=== PATIENT | male | born 1945 | race Caucasian/White ===

== ENCOUNTER 2017-02-04 08:20 | Inpatient (IN) ==
[2017-02-04] MEDS ORDERED: ONDANSETRON 4 MG/2 ML VIAL IV STA (08:41)
[2017-02-04] MEDS ORDERED: ALUM/MAG/SIMETH/LIDO VISC 1:1 30 ML BOTTLE PO STA (08:41)
[2017-02-04] MEDS ORDERED: SODIUM CHLORIDE 0.9% 1,000 ML IV STA (08:41)
[2017-02-04 08:48] LABS: Basophils % 0.1 % (0.0-0.8); Eosinophils % 0.2 % (0.00-10.9); Hematocrit 45.6 VOL% (42.0-52.0); Hemoglobin 14.7 GM/DL (14.0-18.0); Immature Granulocytes % 0.5 %; Immature Granulocytes Absolute 0.07 #; Lymphocytes # 0.8 10*3/uL (1.4-4.0); Lymphocytes % 5.7 % (21.2-54.2); Mean Corpuscular HGB Conc 32.2 GM/DL (32-36); Mean Corpuscular Hemoglobin 28 PG (27-34); Mean Corpuscular Volume 85.2 FL (87-102); Mean Platelet Volume 8.8 FL (9.6-12.0); Monocytes # 1.2 10*3/uL (0.11-0.8); Monocytes % 8.3 % (1.7-12.7); Neutrophils # 12.1 10*3/uL (1.4-7.4); Neutrophils % 85.2 % (38.7-73.9); Platelet Count 163 T/CUMM (130-400); Red Blood Count 5.35 MC/CUMM (3.8-5.5); Red Cell Distribution Width 13.3 % (9.3-17.3); White Blood Count 14.2 T/CUMM (4-12)
[2017-02-04] MEDS ORDERED: ONDANSETRON 4 MG/2 ML VIAL ONE (08:49)
[2017-02-04] MEDS ORDERED: ALUM/MAG/SIMETH/LIDO VISC 1:1 30 ML BOTTLE PO ONE (08:49)
[2017-02-04 09:14] LABS: Troponin I Only < 0.015 NG/ML (0.00-0.045)
--- NOTE | 2017-02-04 09:14 | EKG Report ---
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
[2017-02-04 09:25] LABS: Lactic Acid 1.4 MMOL/L (0.4-2.0)
[2017-02-04 09:26] LABS: Albumin 4.3 G/DL (3.4-5.0); Bilirubin,Total 1.4 MG/DL (0.2-1.0); Calcium 9.7 MG/DL (8.5-10.1); Potassium 4.4 MMOL/L (3.5-5.1)
--- NOTE | 2017-02-04 10:02 | XRay Report ---
Referring Physician: Isaias Wilson Exam: XR abdomen 2V Date: February 04, 2017 at 9:03 AM Reason: Generalized abdominal pain Comparison: None Findings: There are distended loops of small bowel. Minimal air and moderate stool seen within the colon, and this is concerning for partial small bowel obstruction. No free air is identified. Surgical clips are present within the right upper quadrant, suggesting cholecystectomy. The renal shadows are largely obscured, but no definite renal calculi are identified. There is multilevel degenerative change and mild scoliosis at the spine and a few remote right rib fractures. No acute osseous process is seen. Impression: There are distended loops of small bowel, which is concerning for partial small bowel obstruction. Follow-up is recommended. PROCEDURE INTERPRETED AT [facility] DEPARTMENT OF RADIOLOGY Final Report Signed by: Dr. Néstor Hwang
--- NOTE | 2017-02-04 10:44 | Emergency Department Note ---
Jayme Sheffield Brooke, am scribing for, and in the presence of, Isaias Wilson Jr., MD 08:43. Katie Sheffield Marvin Jr., MD, personally performed the services described in this documentation, ascribed by Beth Delacruz in my presence, and it is both accurate and complete 858 . Arrival - Arrival Chief Complaint: Abdominal / Flank Pain Stated Complaint: upper stomach and lower B.I. bleeding nose ED Nursing Triage Note: Pt c/o right sided abd pain with nausea and vomiting x 1 since yesterday am. Mode of Arrival: Ambulatory Limitations: No Limitations Source: Patient Time Seen by Provider: 02/04/17 08:35 - History of Present Illness HPI Narrative: Patient is a 71 year old male who presents to the ED with c/o abdominal pain that started yesterday morning. Patient says the pain is located in the epigastric region. He describes the pain as tight and intermittent. Patient says he did pass some gas "a minute ago" and his abdomen felt a little better. He says the pain was severe last night and he had to sleep in his chair. He also complains of nausea and vomiting and says he vomited one time this morning. Patient no longer has his gallbladder. He has no other complaints. Patient has PMHx of NIDDM and Parkinson's Disease. Patient's Primary Care Provider is Dr. Arteaga. He does not smoke cigarettes, drink alcohol, or do any drugs. Onset (ago): day(s) (1) Allergies/Adverse Reactions: Allergies Allergy/AdvReac Type Severity Reaction Status Date / Time Penicillins Allergy Unknown/Unable Verified 02/04/17 08:30 to obtain Review of System - Review of System 12 point system: reviewed and no additional remarkable complaints except as stated - Review of System Constitutional: Absent: fever Respiratory: Absent: respiratory distress Gastrointestinal: Present: abdominal pain (epigastric), nausea, vomiting (1x this am) Skin: Absent: rash Medical,Surgical,& Family Hx - Medical History Endocrine: History of: Diabetes Mellitus (NIDDM) - Surgical History Abdominal Surgeries: Surgical HX of: Cholecystectomy - Social History Smoking Status: Never smoker Exam Physical Examination: General: Well-developed well-nourished, no apparent distress. Head: Normocephalic, atraumatic. Eyes: PERRLA, EOMI. Nose: No obvious acute deformities or discharge. Mouth: No obvious acute injury. Neck: Full range of motion without obvious pain. No midline tender to palpation. Lymphatic: no significant lymphadenopathy noted. Lungs: Clear to auscultation bilaterally, normal and equal air movement bilaterally, no obvious rales or wheezing. Heart: regular rate and rhythm, no obvious mummers. Abdomen: Mild epigastric tender to palpation. Tympanic abdomen, seems slightly distended. Skin: No obivous acute lesions noted Musculoskeletal: No gross deformities. Neurological: No focal findings, cranial nerves II through XII grossly normal. Psychiatric: Appropriate mood.. : Deferred Vital Signs: Vital Signs Temperature 97.7 F 02/04/17 09:03 Pulse Rate 80 02/04/17 09:03 Respiratory Rate 18 02/04/17 09:03 Blood Pressure 135/74 02/04/17 09:03 O2 Sat by Pulse Oximetry 97 02/04/17 08:20 Course Course Narrative: Differential diagnosis: Peptic ulcer disease, GE relative reflux, partial or complete bowel obstructions, also must consider cardiac in this age patient and the location. - Reevaluation(s) Reevaluation #1: Patient says his pain is better but he still has some pain in the epigastric area. I discussed this patient with the hospitalist service and they accept him for admission. I did order a CT of the abdomen and pelvis with contrast and the results to be checked by the admitting doctors. Time: 10:41 Results - Labs CBC & BMP: 02/04/17 08:40 02/04/17 08:34 Lab Results: I have reviewed the patients labs Labs: Laboratory Tests 02/04/17 08:40 WBC 14.2 H RBC 5.35 Hgb 14.7 Hct 45.6 MCV 85.2 L MCH 28 MCHC 32.2 RDW 13.3 Plt Count 163 MPV 8.8 L Neut % (Auto) 85.2 H Lymph % (Auto) 5.7 L [place] % (Auto) 8.3 Eos % (Auto) 0.2 Baso % (Auto) 0.1 Neut # (Auto) 12.1 H Lymph # (Auto) 0.8 L [place] # (Auto) 1.2 H Eos # (Auto) 0.0 Baso # (Auto) 0.0 Immature Gran % 0.5 Nucleated RBC % 0.0 Immature Gran # 0.07 Nucleated RBCs # 0.00 Laboratory Tests 02/04/17 02/04/17 08:34 08:34 Sodium 136 Potassium 4.4 Chloride 100 Carbon Dioxide 27 Anion Gap 13.4 BUN 14 Creatinine 1.00 GFR Calculation 100 BUN/Creatinine Ratio 14.00 Glucose 163 H Calculated Osmolality 276.0 Lactic Acid 1.4 Calcium 9.7 Total Bilirubin 1.40 H AST 18 ALT 14 L Alkaline Phosphatase 53 Troponin I < 0.015 Total Protein 8.0 Albumin 4.3 Globulin 3.7 H Albumin/Globulin Ratio 1.1 Lipase 55.0 L - EKG EKG results: interpreted by ERMD (Heart rate 73, normal sinus rhythm, slightly wide QRS complex consistent with a right bundle branch block. No obvious acute ST changes.) - Diagnostic Findings Procedure: Abdominal x-ray: report reviewed by me, image reviewed by me (There are distended loops of small bowel, which is concerning for partial small bowel obstruction. Follow up is recommended.) Disposition Clinical Impression: Epigastric abdominal pain, Partial small bowel obstruction, Hyperglycemia, Neutrophilia Case discussed with: patient Disposition: Still a Patient Condition: Stable Time of Disposition: 10:42
--- NOTE | 2017-02-04 11:53 | CT Report ---
Referring physician: Isaias Wilson EXAM: CT abdomen and pelvis with contrast DATE: February 05, 2012 COMPARISON: None REASON: Epigastric abdominal pain TECHNIQUE: Axial images of the abdomen and pelvis were obtained after administration of 100 cc of Omnipaque 350 IV contrast. Coronal and sagittal reformatted images were also provided. Total DLP is 1550.5 mGy*cm. FINDINGS: Lower thorax: There are mild scattered opacities within both lower lobes. This likely represents atelectasis. ABDOMEN: Liver: Unremarkable. Gallbladder and bile ducts: The patient is status post cholecystectomy. No biliary duct dilatation is seen. Pancreas: The pancreas is partially fatty replaced but otherwise unremarkable. Spleen: Unremarkable. Adrenals: Unremarkable. Kidneys and ureters: No hydronephrosis is present. A tiny subcentimeter cyst is suspected at the upper pole of the left kidney but is too small to well characterize. The ureters are unremarkable as visualized. PELVIS: Bladder: There is low density within the dependent bladder on the delayed images. This could represent artifact from mixing of urine and contrast or could represent debris within the bladder. A bladder lesion is thought less likely. Reproductive: Unremarkable as visualized. ABDOMEN AND PELVIS: Bowel: There are distended loops of small bowel with air-fluid levels present. The small bowel tapers to normal caliber within the right lower quadrant image 98. There is also mild scattered air within the colon. This is concerning for partial small bowel obstruction, but other considerations include ileus. There are also colonic diverticula but no evidence of diverticulitis. Appendix: The appendix is unremarkable. Vasculature: The abdominal aorta is normal in size. There is mild scattered calcified plaque at the arteries. Peritoneum/retroperitoneum: No free air is identified, but there is minimal free fluid within the pelvis. Lymph nodes: No suspicious adenopathy is seen. Abdominal/pelvic wall: There are minimal fat containing inguinal hernias bilaterally. Bones: There is multilevel degenerative change at the spine. A 1.4 cm sclerotic density is seen at the left femoral head/neck junction. This is nonspecific but likely represents a bone island. One or more right rib fractures are noted. No acute osseous process is seen. IMPRESSION: 1. There are distended loops of small bowel with air-fluid levels present. The small bowel tapers to normal caliber within the right lower quadrant, and mild air is seen within the colon. This is concerning for partial small bowel obstruction, but other considerations include ileus. 2. Colonic diverticulosis without evidence of diverticulitis. 3. Scattered atelectasis at both lung bases. 4. There is ill-defined low attenuation within the bladder on the delayed images. This could represent mixing artifact or debris within the bladder. 5. Minimal free fluid within the pelvis. 6. Cholecystectomy. The CT exam was performed using one or more of the following dose reduction techniques: Automated exposure control and adjustment of the mA and/or kV according to patient size. PROCEDURE INTERPRETED AT [facility] DEPARTMENT OF RADIOLOGY Final Report Signed by: Dr. Néstor Hwang
--- NOTE | 2017-02-04 12:24 | Hospitalist History & Physical ---
Assessment and Plan (1) Epigastric abdominal pain Status: Acute Assessment and plan: We will hydrate, bowel rest, manage nausea and vomiting. May insert NG tube for gastric decompression if nausea and vomiting continues. May consult surgery if SBO is not resolved Current Visit: Yes (2) Hyperglycemia Status: Acute Assessment and plan: Will obtain HGA1C and start accuchecks with SS coverage. Current Visit: Yes (3) Partial small bowel obstruction Status: Acute Assessment and plan: We will hydrate, bowel rest, manage nausea and vomiting. May insert NG tube for gastric decompression if nausea and vomiting continues. May consult surgery if SBO is not resolved Current Visit: Yes History of Present Illness Chief complaint: Right side abdominal pain, nausea, and vomiting History of present illness: This is a very unfortunate 71 year old male that presented to the ED at [facility] this morning for evaluation of right sided abdominal pain , nausea, and vomiting. He has a rather impressive medical history significant for Parkinson's disease,non-insulin dependent diabetes mellitus and a surgical history of cholecystectomy. He reported an onset of epigastric pain on last night. He described the pain as "tight" and intermittent in frequency. He reports flatulence since his presentation to the ED. He reports the pain prevented him from sleeping last night. In addition, he reported some nausea and vomiting this morning. He was seen and assessed. Labs were obtained which revealed a WBC at 14.3 and glucose at 163. CT abdomen and pelvis was significant distention loops and mild air within the small bowel. After brief discussion with Dr. Wilson and Dr. Izaguirre , the patient will admitted to the hospitalist services for continuation of care. Home Medications Medication Instructions Recorded Confirmed Type Ascorbic Acid [Vitamin C] 1,000 mg PO BID 02/04/17 02/04/17 History Benztropine Mesylate 2 mg PO BID 02/04/17 02/04/17 History Calcium Carbonate/Vitamin D3 1 each PO QAM 02/04/17 02/04/17 History [Caltrate 600 + D Tablet] Carbidopa/Levodopa 25-100 [Sinemet 1 tablet PO ACHS 02/04/17 02/04/17 History 25-100] Cholecalciferol (Vitamin D3) 1,000 unit PO QPM 02/04/17 02/04/17 History [Vitamin D3] Cyanocobalamin Tab [Vitamin B12 500 mcg PO QAM 02/04/17 02/04/17 History Tab] Lisinopril 10 mg PO DAILY W/SUPPER 02/04/17 02/04/17 History Metformin HCl 500 mg PO AC BREAKFAST 02/04/17 02/04/17 History Omeprazole Magnesium [Prilosec Otc] 20 mg PO BID 02/04/17 02/04/17 History Polycarbophil [Fibercon] 1,250 mg PO QPM 02/04/17 02/04/17 History Potassium 99 mg PO BID 02/04/17 02/04/17 History Pravastatin Sodium 80 mg PO BEDTIME 02/04/17 02/04/17 History Ropinirole HCl 4 mg PO TID 02/04/17 02/04/17 History clonazePAM TAB [KlonoPIN] 0.5 mg PO BEDTIME 02/04/17 02/04/17 History Allergies Allergy/AdvReac Type Severity Reaction Status Date / Time Penicillins Allergy Unknown/Unable Verified 02/04/17 08:30 to obtain Medical,Surgical,& Family Hx - Medical History Endocrine: History of: Diabetes Mellitus (NIDDM) - Surgical History Abdominal Surgeries: Surgical HX of: Cholecystectomy - Social History Smoking Status: Never smoker Frequency of Alcohol Use: None Type of Drug Use: None Marital Status: Lives With:: Spouse 12 point system: reviewed and no additional remarkable complaints except as stated Exam - Constitutional Vitals: Period Temp Pulse Resp BP Sys/Boothe Pulse Ox Last 24 Hr 97.7 F-97.7 F 80-80 18-18 135-135/74-74 97 General appearance: normal weight, mild distress - Head Head exam: Present: normal inspection, normocephalic, atraumatic - Eye Eye exam: Present: EOMI, nystagmus. Absent: conjunctival injection Pupils: Present: KAVITA, normal accommodation - ENT ENT exam: Present: normal exam, normal external ear exam, normal oropharynx - Neck Neck exam: Present: normal inspection. Absent: lymphadenopathy, meningismus, tenderness, thyromegaly - Respiratory Respiratory exam: Present: clear to auscultation bilaterally. Absent: rales, rhonchi, stridor, wheezes - Cardiovascular Cardiovascular exam: Present: regular rate and rhythm. Absent: carotid bruit, diastolic murmur, gallop, JVD, rubs, systolic murmur - GI/Abdominal GI/Abdominal exam: Present: hypoactive bowel sounds, tenderness (RUQ pain) - Extremities Exam Extremities exam: Present: normal inspection, normal capillary refill, full ROM - Back Exam Back exam: Present: normal inspection - Neurological Exam Neurological exam: Present: alert, oriented X3, CN II-XII intact - Psychiatric Psychiatric exam: Present: normal affect, normal mood - Skin Skin exam: Present: normal color, warm, dry Results - Labs CBC & BMP: 02/04/17 08:40 02/04/17 08:34 Lab Results: I have reviewed the past 24 hour labs
[2017-02-04] MEDS ORDERED: ONDANSETRON 4 MG/2 ML VIAL IV PRN (14:27)
[2017-02-04] MEDS: ENOXAPARIN 40 MG/0.4 ML SYRINGE SUBCUT SCH (15:47)
[2017-02-04] MEDS: FAMOTIDINE 20 MG/2 ML VIAL IV SCH (15:48)
[2017-02-04] MEDS: MEROPENEM 1,000 MG in SODIUM CHLORIDE 0.9% 100 ML IV SCH (15:48)
[2017-02-04] MEDS: CARBIDOPA/LEVODOPA 25-100 MG TABLET PO SCH ×2 (15:49→23:24)
[2017-02-04] MEDS: SODIUM CHLORIDE 0.9% 1,000 ML IV SCH ×2 (15:49→23:26)
[2017-02-04] MEDS ORDERED: metroNIDAZOLE INJ 500 MG in PREMIX 1 EACH IV SCH (16:00)
--- NOTE | 2017-02-04 16:44 | General Surgery Consult Note ---
Assessment and Plan - Time spent with patient Time spent with patient: Less than 30 minutes (1) Partial small bowel obstruction Status: Acute Assessment and plan: Impression: 1. Abdominal pain possibly secondary to partial small bowel obstruction 2. Constipation 3. Parkinsonism Plan: 1. IV fluids and IV antibiotics at this time. 2. Observation for now with some enemas to see if we can open them up. Current Visit: Yes History of Present Illness Chief complaint: Abdominal pain some nausea but no vomiting History of present illness: Mr. Alejandre is a 71 year old male white male came to the emergency room because of abdominal pain for some nausea but no vomiting. He had some plain films that showed some diffuse gas changes and some stool in the colon so underwent a CT scan. This scan showed partial small bowel obstruction with good bit of stool in the colon. He describes having bowel movements that are hard as a rock so I think he is constipated to some degree. He is only had a what looks like a laparoscopic gallbladder in the past while back has never had any problems now. No evidence of any hernias present at this time. At this point will treat him like he is constipated see if he will open up without surgery. Home Medications Medication Instructions Recorded Confirmed Type Ascorbic Acid [Vitamin C] 1,000 mg PO BID 02/04/17 02/04/17 History Benztropine Mesylate 2 mg PO BID 02/04/17 02/04/17 History Calcium Carbonate/Vitamin D3 1 each PO QAM 02/04/17 02/04/17 History [Caltrate 600 + D Tablet] Carbidopa/Levodopa 25-100 [Sinemet 1 tablet PO ACHS 02/04/17 02/04/17 History 25-100] Cholecalciferol (Vitamin D3) 1,000 unit PO QPM 02/04/17 02/04/17 History [Vitamin D3] Cyanocobalamin Tab [Vitamin B12 500 mcg PO QAM 02/04/17 02/04/17 History Tab] Lisinopril 10 mg PO DAILY W/SUPPER 02/04/17 02/04/17 History Metformin HCl 500 mg PO AC BREAKFAST 02/04/17 02/04/17 History Omeprazole Magnesium [Prilosec Otc] 20 mg PO BID 02/04/17 02/04/17 History Polycarbophil [Fibercon] 1,250 mg PO QPM 02/04/17 02/04/17 History Potassium 99 mg PO BID 02/04/17 02/04/17 History Pravastatin Sodium 80 mg PO BEDTIME 02/04/17 02/04/17 History Ropinirole HCl 4 mg PO TID 02/04/17 02/04/17 History clonazePAM TAB [KlonoPIN] 0.5 mg PO BEDTIME 02/04/17 02/04/17 History Allergies Allergy/AdvReac Type Severity Reaction Status Date / Time Penicillins Allergy Unknown/Unable Verified 02/04/17 08:30 to obtain Medical,Surgical,& Family Hx - Medical History Cardio: History of: Hypertension Neurology: History of: Parkinson's Disease Endocrine: History of: Diabetes Mellitus (NIDDM) - Surgical History Abdominal Surgeries: Surgical HX of: Cholecystectomy Orthopedic Surgeries: Surgical HX of;: Orthopedic Surgery (shoulder repair) - Social History Smoking Status: Never smoker Frequency of Alcohol Use: None Type of Drug Use: None 12 point system: reviewed and no additional remarkable complaints except as stated Exam - Constitutional General appearance: mild distress - Head Head exam: Present: normal inspection - ENT ENT exam: Present: normal exam - Neck Neck exam: Present: normal inspection - Respiratory Respiratory exam: Present: clear to auscultation bilaterally, rales - Cardiovascular Cardiovascular exam: Present: RRR - GI/Abdominal GI/Abdominal exam: Present: distended (Mild), hypoactive bowel sounds, soft. Absent: tenderness - Extremities Exam Extremities exam: Present: normal inspection - Back Exam Back exam: Present: normal inspection - Neurological Exam Neurological exam: Present: alert, oriented X3, CN II-XII intact - Skin Skin exam: Present: normal color, warm, dry Results - Labs CBC & BMP: 02/04/17 08:40 02/04/17 08:34 Lab Results: I have reviewed the past 24 hour labs - Diagnostic Findings Procedure: CT Abdomen and Pelvis: report reviewed by me (Possible small bowel obstruction partial versus constipation)
[2017-02-04] MEDS ORDERED: MINERAL OIL ENEMA 133 ML BOTTLE RECTAL ONE (16:51)
[2017-02-04] MEDS ORDERED: SODIUM PHOSPHATE ENEMA 133 ML BOTTLE RECTAL ONE (17:00)
[2017-02-04 18:00] LABS: Apearance,Urine CLEAR (Clear); Bilirubin,Urine Negative (Negative); Blood, Urine Negative (Negative); Glucose,Urine (UA) Negative (Negative); Ketones,Urine Negative (Negative); Nitrite,Urine Negative (Negative); Protein,Urine Negative; RBC,Urine <1 /HPF (0-4); Urine Color Yellow (Yellow); Urine Specific Gravity 1.026 (1.001-1.035); WBC,Urine <1 /HPF (0-6)
[2017-02-04] MEDS: metroNIDAZOLE INJ 500 MG in PREMIX 1 EACH IV SCH (18:05)
--- NOTE | 2017-02-04 18:36 | XRay Report ---
Referring Physician: Rocky Peterson Exam: XR chest 1V portable Date: February 04, 2017 at 5:53 PM Reason: Small bowel obstruction Comparison: CT abdomen and pelvis February 04, 2017 Findings: The cardiac silhouette is upper normal in size. There is minimal atelectasis at the lung bases, but no pneumothorax or definite pleural effusion is identified. No acute osseous process is seen. Impression: 1. Borderline cardiomegaly. 2. Minimal bibasilar atelectasis. PROCEDURE INTERPRETED AT [facility] DEPARTMENT OF RADIOLOGY Final Report Signed by: Dr. Néstor Hwang
[2017-02-04] MEDS: MORPHINE 2 MG/1 ML SYRINGE IV PRN (23:25)
[2017-02-05] MEDS: metroNIDAZOLE INJ 500 MG in PREMIX 1 EACH IV SCH ×3 (01:04→17:00)
[2017-02-05] MEDS: FAMOTIDINE 20 MG/2 ML VIAL IV SCH ×2 (03:26→15:38)
[2017-02-05] MEDS: MEROPENEM 1,000 MG in SODIUM CHLORIDE 0.9% 100 ML IV SCH ×2 (03:26→15:15)
[2017-02-05] MEDS: SODIUM CHLORIDE 0.9% 1,000 ML IV SCH ×3 (07:03→20:38)
--- NOTE | 2017-02-05 07:25 | EKG Report ---
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
[2017-02-05 07:40] LABS: Basophils % 0.4 % (0.0-0.8); Eosinophils # 0.2 10*3/uL (0.0-0.87); Eosinophils % 1.7 % (0.00-10.9); Hematocrit 44.4 VOL% (42.0-52.0); Immature Granulocytes % 0.5 %; Immature Granulocytes Absolute 0.05 #; Lymphocytes # 1.6 10*3/uL (1.4-4.0); Lymphocytes % 16.2 % (21.2-54.2); Mean Corpuscular HGB Conc 31.5 GM/DL (32-36); Mean Corpuscular Hemoglobin 27 PG (27-34); Mean Corpuscular Volume 85.7 FL (87-102); Mean Platelet Volume 9.7 FL (9.6-12.0); Monocytes # 1.1 10*3/uL (0.11-0.8); Monocytes % 11.4 % (1.7-12.7); Neutrophils # 6.8 10*3/uL (1.4-7.4); Neutrophils % 69.8 % (38.7-73.9); Platelet Count 147 T/CUMM (130-400); Red Blood Count 5.18 MC/CUMM (3.8-5.5); Red Cell Distribution Width 13.3 % (9.3-17.3); White Blood Count 9.7 T/CUMM (4-12)
[2017-02-05 07:51] LABS: PT Patient Result 10.9 SECS; Partial Thromboplastin Time 27.4 SECS (0-40)
--- NOTE | 2017-02-05 07:57 | XRay Report ---
XR abdomen 2V Indication: SBO Comparison: Abdominal x-ray dated February 04, 2017 Technique: Frontal views of the abdomen in the supine and upright position. Findings: Mildly dilated loops of small bowel noted within the upper/midabdomen with air-fluid levels again concerning for small bowel obstruction. Surgical clips within the right upper quadrant of the abdomen. Bibasilar atelectasis and probable small left pleural fluid. Osseous structures appear grossly unchanged. IMPRESSION: As above. PROCEDURE INTERPRETED AT [facility] DEPARTMENT OF RADIOLOGY Final Report Signed by: Dr Haim Blandon
[2017-02-05 08:11] LABS: Calcium 8.2 MG/DL (8.5-10.1); Osmolality,Calculated 282.1 MOS/KG (273-304); Potassium 3.9 MMOL/L (3.5-5.1)
[2017-02-05] MEDS: CARBIDOPA/LEVODOPA 25-100 MG TABLET PO SCH ×4 (09:17→20:33)
--- NOTE | 2017-02-05 12:35 | General Surgery Progress Note ---
Assessment and Plan - Time spent with patient Time spent with patient: Less than 30 minutes (1) Partial small bowel obstruction Status: Acute Assessment and plan: 02/05/17 Partial SBO, appears to be resolving. No pain/N/V. He has had a large semi liquid stool and large amounts of gas per rectum. We'll add clears and encourage mobility. Current Visit: Yes Subjective Patient reports: Present: feels better, flatus, bowel movement. Absent: nausea , vomiting Exam - Constitutional Vitals: Period Temp Pulse Resp BP Sys/Boothe Pulse Ox Last 24 Hr 18-20 General appearance: no acute distress, other (Pt is sitting up in bed with family, saying he feels better since having a large BM just a few minutes ago. Denies N/V; denies SOB or pain.) - Respiratory Respiratory exam: Present: clear to auscultation bilaterally - Cardiovascular Cardiovascular exam: Present: RRR - GI/Abdominal GI/Abdominal exam: Present: normal bowel sounds, distended, soft, other (He has a large amount of semi liquid stool in the toilet bowl.). Absent: guarding, tenderness Results - Labs CBC & BMP: 02/05/17 06:25 02/05/17 06:25 Lab Results: I have reviewed the past 24 hour labs - Diagnostic Findings Procedure: KUB x-ray: report reviewed by me (Report from earlier shows SBO, however that study was performed prior to the patient's reported BM and passage of large amounts of flatus.)
[2017-02-05] MEDS: ENOXAPARIN 40 MG/0.4 ML SYRINGE SUBCUT SCH (15:37)
--- NOTE | 2017-02-05 16:29 | Hospitalist Progress Note ---
Assessment and Plan (1) Partial small bowel obstruction Status: Acute Assessment and plan: Surgery assisting Started on clear diet Continue merrem and flagyl Current Visit: Yes Hospitalist: Subjective Interval history: No acute events overnight. Surgery following. Started on clears today, tolerated well. Leukocytosis is resolved. Exam - Constitutional Vitals: Period Temp Pulse Resp BP Sys/Boothe Pulse Ox Last 24 Hr 18-20 General appearance: over weight - Head Head exam: Present: normocephalic, atraumatic - Eye Eye exam: Present: EOMI Pupils: Present: KAVITA - ENT ENT exam: Present: normal exam - Neck Neck exam: Present: normal inspection - Respiratory Respiratory exam: Present: clear to auscultation bilaterally. Absent: rhonchi, wheezes - Cardiovascular Cardiovascular exam: Present: regular rate and rhythm - GI/Abdominal GI/Abdominal exam: Present: normal bowel sounds, soft. Absent: tenderness, rebound - Extremities Exam Extremities exam: Present: normal inspection - Back Exam Back exam: Present: normal inspection - Neurological Exam Neurological exam: Present: alert, oriented X3 - Psychiatric Psychiatric exam: Present: normal affect, normal mood - Skin Skin exam: Present: warm, intact Results - Labs CBC & BMP: 02/05/17 06:25 02/05/17 06:25
[2017-02-05] MEDS: MORPHINE 2 MG/1 ML SYRINGE IV PRN (20:32)
[2017-02-06] MEDS: metroNIDAZOLE INJ 500 MG in PREMIX 1 EACH IV SCH ×3 (01:14→16:31)
[2017-02-06] MEDS: MORPHINE 2 MG/1 ML SYRINGE IV PRN (01:18)
[2017-02-06] MEDS: FAMOTIDINE 20 MG/2 ML VIAL IV SCH ×2 (03:48→14:31)
[2017-02-06] MEDS: MEROPENEM 1,000 MG in SODIUM CHLORIDE 0.9% 100 ML IV SCH ×2 (03:48→13:40)
[2017-02-06 05:33] LABS: Basophils % 0.4 % (0.0-0.8); Eosinophils # 0.1 10*3/uL (0.0-0.87); Eosinophils % 1.5 % (0.00-10.9); Hematocrit 40.1 VOL% (42.0-52.0); Hemoglobin 12.6 GM/DL (14.0-18.0); Immature Granulocytes % 0.7 %; Immature Granulocytes Absolute 0.05 #; Lymphocytes # 1.1 10*3/uL (1.4-4.0); Lymphocytes % 15.9 % (21.2-54.2); Mean Corpuscular HGB Conc 31.4 GM/DL (32-36); Mean Corpuscular Hemoglobin 28 PG (27-34); Mean Corpuscular Volume 87.9 FL (87-102); Mean Platelet Volume 8.8 FL (9.6-12.0); Monocytes # 0.9 10*3/uL (0.11-0.8); Monocytes % 13.1 % (1.7-12.7); Neutrophils # 4.6 10*3/uL (1.4-7.4); Neutrophils % 68.4 % (38.7-73.9); Platelet Count 126 T/CUMM (130-400); Red Blood Count 4.56 MC/CUMM (3.8-5.5); Red Cell Distribution Width 13.1 % (9.3-17.3); White Blood Count 6.7 T/CUMM (4-12)
[2017-02-06 06:04] LABS: Calcium 7.9 MG/DL (8.5-10.1); Magnesium 2.4 MG/DL (1.8-2.4); Osmolality,Calculated 282.1 MOS/KG (273-304); Potassium 3.8 MMOL/L (3.5-5.1)
[2017-02-06] MEDS: CARBIDOPA/LEVODOPA 25-100 MG TABLET PO SCH ×4 (06:36→20:22)
[2017-02-06] MEDS: SODIUM CHLORIDE 0.9% 1,000 ML IV SCH ×6 (06:37→22:43)
[2017-02-06] MEDS ORDERED: GLUCAGON 1 MG VIAL IM PRN (10:32)
[2017-02-06] MEDS ORDERED: DEXTROSE 50% 25 GM/50 ML VIAL IV PRN (10:32)
--- NOTE | 2017-02-06 10:39 | General Surgery Progress Note ---
Assessment and Plan - Time spent with patient Time spent with patient: Less than 30 minutes (1) Partial small bowel obstruction Status: Acute Assessment and plan: Impression: 1. Abdominal pain possibly secondary to partial small bowel obstruction 2. Constipation 3. Parkinsonism Plan: 1. IV fluids and IV antibiotics at this time. 2. Observation for now with some enemas to see if we can open them up. 02/06/2017 Patient is continuing to do well having some bowel movements and passing gas. He has tolerated liquids well without any nausea or vomiting. Abdomen remains soft and nondistended with bowel sounds present. We will plan to advance him to solid food and basically see if he does well with that. Potentially could go home tomorrow if he is doing well on solid food. Current Visit: Yes Subjective Patient reports: Present: no new complaints, tolerating liquids well, bowel movement, afebrile Exam - Constitutional Vitals: Period Temp Pulse Resp BP Sys/Boothe Pulse Ox Last 24 Hr 98 F-98.9 F 67-77 16-18 123-157/65-75 91-94 General appearance: no acute distress - Head Head exam: Present: normal inspection - ENT ENT exam: Present: normal exam - Neck Neck exam: Present: normal inspection - Respiratory Respiratory exam: Present: clear to auscultation bilaterally, rales - Cardiovascular Cardiovascular exam: Present: RRR - GI/Abdominal GI/Abdominal exam: Present: hypoactive bowel sounds, soft. Absent: distended, tenderness - Extremities Exam Extremities exam: Present: normal inspection - Back Exam Back exam: Present: normal inspection - Neurological Exam Neurological exam: Present: alert, oriented X3, CN II-XII intact - Skin Skin exam: Present: normal color, warm, dry Results - Labs CBC & BMP: 02/06/17 05:22 02/06/17 05:22 Lab Results: I have reviewed the past 24 hour labs
[2017-02-06] MEDS: INSULIN REGULAR 100 UNIT/ML SUBCUT SCH ×4 (11:44→20:29)
[2017-02-06] MEDS: ALUMINUM/MAGNES/SIMETH MAX STR 30 ML UDCUP PO SCH ×2 (12:04→17:05)
[2017-02-06] MEDS: ENOXAPARIN 40 MG/0.4 ML SYRINGE SUBCUT SCH (13:40)
--- NOTE | 2017-02-06 14:23 | Hospitalist Progress Note ---
Assessment and Plan (1) Partial small bowel obstruction Status: Acute Assessment and plan: continue conservative management Surgery is following advance feeds KUB in am Continue IV fluids and IV antibiotics Current Visit: Yes (2) Parkinson disease Status: Acute Assessment and plan: with resting tremors home meds on hold for now Current Visit: Yes (3) Hypercholesteremia Status: Acute Assessment and plan: continue with statins Current Visit: Yes Hospitalist: Subjective Interval history: patient seen this am. He feels much better and ready for po intake advancement. He passed gas earlier on and denies nausea and vomiting. He has resting tremors. Exam - Constitutional Vitals: Period Temp Pulse Resp BP Sys/Boothe Pulse Ox Last 24 Hr 97.8 F-98.9 F 67-77 16-18 123-157/65-80 91-94 General appearance: no acute distress - Head Head exam: Present: normal inspection - Respiratory Respiratory exam: Present: clear to auscultation bilaterally - Cardiovascular Cardiovascular exam: Present: regular rate and rhythm - GI/Abdominal GI/Abdominal exam: Present: normal bowel sounds - Extremities Exam Extremities exam: Present: normal inspection, other (resting tremors) Results - Labs CBC & BMP: 02/06/17 05:22 02/06/17 05:22 Lab Results: I have reviewed the past 24 hour labs
[2017-02-06] MEDS: rOPINIRole 4 MG TABLET PO SCH ×2 (14:26→20:22)
[2017-02-06] MEDS ORDERED: LISINOPRIL 10 MG TABLET PO SCH (17:00)
[2017-02-06] MEDS ORDERED: CHOLECALCIFEROL 1,000 UNIT TABLET PO SCH (19:00)
[2017-02-06] MEDS: BENZTROPINE 1 MG TABLET PO SCH (20:21)
[2017-02-06] MEDS: DOCUSATE SODIUM 100 MG CAPSULE PO SCH (20:22)
[2017-02-06] MEDS: POTASSIUM CHLORIDE 10 MEQ TABLET PO SCH (20:22)
[2017-02-06] MEDS: ASCORBIC ACID 500 MG TABLET PO SCH (20:22)
[2017-02-06] MEDS: MINERAL OIL 30 ML UDCUP PO SCH (20:28)
[2017-02-06] MEDS ORDERED: clonazePAM 0.5 MG TABLET PO SCH (21:00)
[2017-02-06] MEDS ORDERED: PRAVASTATIN 40 MG TABLET PO SCH (21:00)
[2017-02-07] MEDS: metroNIDAZOLE INJ 500 MG in PREMIX 1 EACH IV SCH ×2 (01:03→08:25)
[2017-02-07] MEDS: MEROPENEM 1,000 MG in SODIUM CHLORIDE 0.9% 100 ML IV SCH ×3 (01:03→14:45)
[2017-02-07] MEDS: FAMOTIDINE 20 MG/2 ML VIAL IV SCH ×3 (01:04→14:59)
[2017-02-07] MEDS: INSULIN REGULAR 100 UNIT/ML SUBCUT SCH ×2 (08:21→11:55)
[2017-02-07] MEDS: DOCUSATE SODIUM 100 MG CAPSULE PO SCH (08:23)
[2017-02-07] MEDS: MINERAL OIL 30 ML UDCUP PO SCH (08:23)
[2017-02-07] MEDS: CARBIDOPA/LEVODOPA 25-100 MG TABLET PO SCH ×3 (08:24→16:11)
[2017-02-07] MEDS: ALUMINUM/MAGNES/SIMETH MAX STR 30 ML UDCUP PO SCH (08:24)
[2017-02-07] MEDS: BENZTROPINE 1 MG TABLET PO SCH (08:24)
[2017-02-07] MEDS: POTASSIUM CHLORIDE 10 MEQ TABLET PO SCH (08:25)
[2017-02-07] MEDS: rOPINIRole 4 MG TABLET PO SCH ×2 (08:25→14:45)
[2017-02-07] MEDS ORDERED: CYANOCOBALAMIN 500 MCG TABLET PO SCH (09:00)
[2017-02-07] MEDS ORDERED: CALCIUM (CARBONATE)/VITAMIN D 600 MG-400 UNIT TABLET PO SCH (09:00)
[2017-02-07] MEDS: ASCORBIC ACID 500 MG TABLET PO SCH (09:18)
--- NOTE | 2017-02-07 09:35 | XRay Report ---
XR KUB Indication: Abdominal pain Comparison: None available Findings: No free fluid or free air seen. The bowel gas pattern appears within normal limits. No abnormal calcifications are present. Multiple clips are present from previous surgery. No other abnormality is identified. Impression: No evidence of acute process demonstrated. PROCEDURE INTERPRETED AT [facility] DEPARTMENT OF RADIOLOGY Final Report Signed by: Dr. Chance Griffin
[2017-02-07 12:04] VITALS: BP 142/56
--- NOTE | 2017-02-07 13:03 | General Surgery Progress Note ---
Assessment and Plan (1) Partial small bowel obstruction Status: Acute Assessment and plan: 02/07/17 Apparent resolution of partial SBO. He is now having normal bowel movements and tolerating a regular diet. OK with surgery for discharge. We recommend continuing daily Miralax, 17g po mixed in 8oz liquid, as a prophylaxis for PD patients with slow motility. 02/05/17 Partial SBO, appears to be resolving. No pain/N/V. He has had a large semi liquid stool and large amounts of gas per rectum. We'll add clears and encourage mobility. Current Visit: Yes Subjective Patient reports: Present: feels better, tolerating liquids well, flatus, bowel movement, other (No pain, no nausea or vomiting.) Exam - Constitutional Vitals: Period Temp Pulse Resp BP Sys/Boothe Pulse Ox Last 24 Hr 97.6 F-98.6 F 69-81 16-20 130-154/56-81 94-100 General appearance: normal weight, no acute distress, other (Sitting up at the edge of the bed, eating a regular diet, with family present. He is conversant and cheerful, denies pain, and says he wants to go home.) - ENT Mouth exam: Present: normal voice - Neck Neck exam: Present: normal inspection - Respiratory Respiratory exam: Present: clear to auscultation bilaterally - GI/Abdominal GI/Abdominal exam: Present: hypoactive bowel sounds, soft. Absent: distended, guarding, tenderness - Neurological Exam Neurological exam: Present: alert, oriented X3 Results - Labs CBC & BMP: 02/06/17 05:22 02/06/17 05:22 Lab Results: I have reviewed the past 24 hour labs (Labs stable.) - Diagnostic Findings Procedure: KUB x-ray: image reviewed by me, report reviewed by me (KUB normal today.)
[2017-02-07] MEDS: SODIUM CHLORIDE 0.9% 1,000 ML IV SCH (13:17)
[2017-02-07] MEDS: ENOXAPARIN 40 MG/0.4 ML SYRINGE SUBCUT SCH (14:44)
--- NOTE | 2017-02-07 15:24 | Discharge Summary ---
Hospital Course - Hospital Course Hospital Course: History of present illness: Patient is a 71 year old male white male with a history of DM, HTN and Parkinson 's disease who came to the emergency room because of abdominal pain for some nausea but no vomiting. He had some plain films that showed some diffuse gas changes and some stool in the colon so underwent a CT scan. This scan showed partial small bowel obstruction with good bit of stool in the colon. He describes having bowel movements that are hard as a rock.He was admitted., started on IVF, anti emetics, pain meds. Surgery was consulted. They suggested to treat his constipation conservatively and would not need surgery.He was also placed on IV antibiotics.BC were negative.He was started on po liquids which he tolerated and diet was advanced. A repeat KUB showed no acute process.patient's vital signs remained stable and he will be going home today on daily Miralax, 17g po mixed in 8oz liquid as recommended by surgery being a patient with Parkinsons.He will follow with PCP in 1week. - Time spent with patient Time with patient DS: Greater than 30 minutes (time spent;35mins) Diagnosis - Discharge Diagnosis (1) Partial small bowel obstruction Status: Acute (2) Parkinson disease Status: Acute (3) Hypercholesteremia Status: Acute Discharge Plan - Discharge Data Disposition: Disch To Home/Self Care Condition at Discharge: Stable Discharge Diet: advance to your usual diet Activity: resume usual activities as tolerated - Discharge Medications New Alum/Mag/Simeth Max Str Liquid [Mylanta Max Strength Liquid] 30 ml PO BIDPC Docusate Sodium Cap [Colace Cap] 100 mg PO BID capsule Mineral Oil 15 ml PO BID #7 Continue Carbidopa/Levodopa 25-100 [Sinemet 25-100] 1 tablet PO TID clonazePAM TAB [KlonoPIN] 0.5 mg PO BEDTIME Lisinopril 10 mg PO DAILY W/SUPPER Ropinirole HCl 4 mg PO TID Metformin HCl 500 mg PO AC BREAKFAST Benztropine Mesylate 2 mg PO BID Polycarbophil [Fibercon] 1,250 mg PO QPM Cholecalciferol (Vitamin D3) [Vitamin D3] 1,000 unit PO QPM Ascorbic Acid [Vitamin C] 1,000 mg PO BID Cyanocobalamin Tab [Vitamin B12 Tab] 500 mcg PO QAM Calcium Carbonate/Vitamin D3 [Caltrate 600 Plus D3 Tablet] 1 each PO QAM Omeprazole Magnesium [Prilosec Otc] 20 mg PO BID Pravastatin Sodium 80 mg PO BEDTIME Potassium 99 mg PO BID - Follow Up or Referral - Forms/Instructions Exam - Constitutional Vitals: Period Temp Pulse Resp BP Sys/Boothe Pulse Ox Last 24 Hr 97.6 F-98.6 F 69-81 16-20 130-154/56-81 94-100 General appearance: no acute distress - Head Head exam: Present: normal inspection - Respiratory Respiratory exam: Present: clear to auscultation bilaterally - Cardiovascular Cardiovascular exam: Present: regular rate and rhythm - GI/Abdominal GI/Abdominal exam: Present: normal bowel sounds - Extremities Exam Extremities exam: Present: other (resting tremors) Discharge Results Procedures and tests throughout hospitalization: Pending Orders 02/04/17 14:50 Blood Culture Routine Labs on day of discharge: Labs from last 24 hours 02/07/17 02/07/17 02/06/17 11:40 07:17 19:24 POC Glucose 154 H 127 H 154 H 02/06/17 16:52 POC Glucose 102 Preliminary micro results at discharge 02/04/17 14:50 Blood Culture - Preliminary Blood No growth at 3 days 02/04/17 14:50 Blood Culture - Preliminary Blood No growth at 3 days DS: Provider Date of admission: 02/04/17 12:18 Primary care physician: . No PCP Attending physician on admission: Kurt Izaguirre MD Consults: 02/04/17 14:27 Consult to Physician [CONS] Routine Comment: partial bowel obstruction Consulting Provider: Rocky Peterson Consult Notification Comment: spoke with Dr Peterson at 1433 on 02-04-17 Discharging clinician: Tequila Bee MD
== END 2017-02-07 16:34 | disposition home or self-care (01) | DRG 390 ==
LOC: N.ED 08:20 → N.EDINP 12:18 → SUATTDRO 12:18 → N.5E 12:50
PROVIDERS: ADMIT Internal Medicine; ATTEND Internal Medicine

== ENCOUNTER 2021-06-26 16:25 | Inpatient (IN) ==
[2021-06-26] MEDS ORDERED: SODIUM CHLORIDE 0.9% 500 ML IV STA (17:52)
[2021-06-26 18:21] LABS: Basophils % 0.3 % (0.0-0.8); Eosinophils # 0.1 10*3/uL (0.0-0.87); Eosinophils % 0.9 % (0.00-10.9); Hematocrit 40.9 VOL% (42.0-52.0); Hemoglobin 12.8 GM/DL (14.0-18.0); Immature Granulocytes % 0.4 %; Immature Granulocytes Absolute 0.03 #; Lymphocytes # 0.8 10*3/uL (1.4-4.0); Lymphocytes % 11.2 % (21.2-54.2); Mean Corpuscular HGB Conc 31.3 GM/DL (32-36); Mean Corpuscular Volume 87.6 FL (87-102); Mean Platelet Volume 9.4 FL (9.6-12.0); Monocytes % 10.1 % (1.7-12.7); Neutrophils % 77.1 % (38.7-73.9); Platelet Count 140 T/CUMM (130-400); Red Blood Count 4.67 MC/CUMM (3.8-5.5); Red Cell Distribution Width 13.7 % (9.3-17.3); White Blood Count 7.5 T/CUMM (4-12)
[2021-06-26 18:49] LABS: Bilirubin,Urine Negative (Negative); Blood, Urine Negative (Negative); Glucose,Urine (UA) Negative (Negative); Hyaline Casts,Urine 4 /LPF (0-3); Ketones,Urine Negative (Negative); Mucus,Urine Occasional /LPF (Occasional); Nitrite,Urine Negative (Negative); Protein,Urine Negative; RBC,Urine <1 /HPF (0-4); Urine Appearance CLEAR (Clear); Urine Color Yellow (Yellow); Urine Urobilinogen < 2.0 EU/DL (0.2-1.0)
[2021-06-26 18:56] LABS: Calcium 8.9 MG/DL (8.5-10.1); Osmolality,Calculated 280.4 MOS/KG (273-304); Potassium 4.2 MMOL/L (3.5-5.1)
[2021-06-26] MEDS ORDERED: DEXTROSE 50% 25 GM/50 ML VIAL IV PRN (20:59)
[2021-06-26] MEDS ORDERED: ACETAMINOPHEN 325 MG TABLET PO PRN (20:59)
[2021-06-26] MEDS ORDERED: ONDANSETRON 4 MG/2 ML VIAL IV PRN (20:59)
[2021-06-26] MEDS ORDERED: GLUCAGON 1 MG VIAL IM PRN (20:59)
[2021-06-26] MEDS ORDERED: DEXAMETHASONE 4 MG/1 ML VIAL ONE (21:22)
[2021-06-26] MEDS ORDERED: ENOXAPARIN 40 MG/0.4 ML SYRINGE SUBCUT SCH (21:30)
[2021-06-26] MEDS: SODIUM CHLORIDE 0.9% 1,000 ML IV SCH (23:00)
[2021-06-27] MEDS: ENOXAPARIN 40 MG/0.4 ML SYRINGE SUBCUT SCH ×2 (01:19→21:33)
[2021-06-27 06:13] LABS: Hematocrit 41.6 VOL% (42.0-52.0); Hemoglobin 13.4 GM/DL (14.0-18.0); Immature Granulocytes % 0.4 %; Immature Granulocytes Absolute 0.02 #; Lymphocytes # 0.3 10*3/uL (1.4-4.0); Lymphocytes % 5.9 % (21.2-54.2); Mean Corpuscular HGB Conc 32.2 GM/DL (32-36); Mean Corpuscular Volume 87.6 FL (87-102); Mean Platelet Volume 9.8 FL (9.6-12.0); Neutrophils % 89.7 % (38.7-73.9); Platelet Count 139 T/CUMM (130-400); Red Blood Count 4.75 MC/CUMM (3.8-5.5); Red Cell Distribution Width 13.6 % (9.3-17.3); White Blood Count 5.5 T/CUMM (4-12)
[2021-06-27 07:01] LABS: Albumin 3.7 G/DL (3.4-5.0); Calcium 8.9 MG/DL (8.5-10.1); Osmolality,Calculated 280.5 MOS/KG (273-304); Potassium 4.5 MMOL/L (3.5-5.1); Total Protein 7.4 G/DL (6.4-8.2)
[2021-06-27] MEDS ORDERED: ONDANSETRON 4 MG/2 ML VIAL IV PRN (08:53)
[2021-06-27] MEDS ORDERED: ACETAMINOPHEN 325 MG TABLET PO PRN (08:53)
[2021-06-27] MEDS ORDERED: diphenhydrAMINE 50 MG/1 ML VIAL IV PRN ×2 (08:53)
[2021-06-27] MEDS ORDERED: methylPREDNISolone SOD SUC 125 MG/2 ML VIAL IV PRN (08:53)
[2021-06-27] MEDS ORDERED: MECLIZINE 25 MG TABLET PO PRN (08:53)
[2021-06-27] MEDS ORDERED: CASIRIVIMAB/IMDEVIMAB 1,200 MG in SODIUM CHLORIDE 0.9% 100 ML IV ONE (09:00)
[2021-06-27] MEDS ORDERED: DEXAMETHASONE 0.5 MG TABLET PO SCH (09:00)
[2021-06-27] MEDS: RASAGILINE 0.5 MG TABLET PO SCH (09:34)
[2021-06-27] MEDS: CARBIDOPA/LEVODOPA 25-100 MG TABLET PO SCH ×3 (09:34→21:10)
[2021-06-27] MEDS: FAMOTIDINE 20 MG TABLET PO SCH ×2 (09:34→21:10)
[2021-06-27] MEDS: PANTOPRAZOLE 40 MG TABLET PO SCH (09:34)
[2021-06-27] MEDS: ZINC SULFATE 220 MG CAPSULE PO SCH (09:34)
[2021-06-27] MEDS: SODIUM CHLORIDE 0.9% 1,000 ML IV SCH (14:31)
[2021-06-27] MEDS: TRIAMTERENE/HCTZ 37.5-25 MG TABLET PO SCH (15:21)
[2021-06-27] MEDS ORDERED: hydrALAZINE 20 MG/1 ML VIAL IV PRN (17:13)
[2021-06-27] MEDS ORDERED: SIMVASTATIN 40 MG TABLET PO SCH (21:00)
[2021-06-27] MEDS ORDERED: DONEPEZIL 10 MG TABLET PO SCH (21:00)
[2021-06-27] MEDS: [UNRECOGNIZED DRUG - OTHER] PO SCH (21:10)
[2021-06-27] MEDS: AMANTADINE HCL 137 MG PO SCH (21:10)
[2021-06-28] MEDS ORDERED: MELATONIN 3 MG TABLET PO PRN (02:02)
[2021-06-28] MEDS: SODIUM CHLORIDE 0.9% 1,000 ML IV SCH (07:09)
[2021-06-28] MEDS: AMANTADINE HCL 137 MG PO SCH ×2 (07:20→09:01)
[2021-06-28] MEDS: [UNRECOGNIZED DRUG - OTHER] PO SCH ×2 (07:20→09:01)
[2021-06-28] MEDS: PIMAVANSERIN 34 MG PO SCH ×2 (07:20→09:01)
[2021-06-28 07:45] LABS: Ferritin 411.2 ng/mL (26-388)
[2021-06-28] MEDS: INSULIN LISPRO 100 UNIT/ML SUBCUT SCH ×2 (07:56→12:11)
[2021-06-28] MEDS ORDERED: DEXAMETHASONE 4 MG TABLET PO SCH (09:00)
[2021-06-28] MEDS ORDERED: TAMSULOSIN 0.4 MG CAPSULE PO SCH (09:00)
[2021-06-28] MEDS: TRIAMTERENE/HCTZ 37.5-25 MG TABLET PO SCH (09:01)
[2021-06-28] MEDS: RASAGILINE 0.5 MG TABLET PO SCH (09:02)
[2021-06-28] MEDS: PANTOPRAZOLE 40 MG TABLET PO SCH (09:02)
[2021-06-28] MEDS: ZINC SULFATE 220 MG CAPSULE PO SCH (09:02)
[2021-06-28] MEDS: FAMOTIDINE 20 MG TABLET PO SCH (09:02)
[2021-06-28] MEDS: CARBIDOPA/LEVODOPA 25-100 MG TABLET PO SCH (09:02)
[2021-06-28 12:17] VITALS: BP 154/80
== END 2021-06-28 13:25 | disposition home health service (06) | DRG 178 ==
LOC: N.ED 16:25 → N.EDINP 20:59 → N.2E 23:07
PROVIDERS: ADMIT Internal Medicine Geriatric Medicine; ATTEND Internal Medicine Geriatric Medicine